=== PATIENT | male | born 1935 | race Caucasian/White ===

== ENCOUNTER → 2017-02-05 | Day surgery (SDC) | payer MEDICARE, BC ==
[~2017-02-05] VITALS: Ht 182.9 cm
[~2017-02-05] MED LIST: AMOXICILLIN500 MG PO; ASPIRIN EC81 MG PO; BACTRIM DS1 TAB PO; CALCIUM 600 +1 EAC6 PO; CALCIUM 600 +1 EAC7 PO; COLACE100 MG PO; COREG6.25 MG PO; COUMADIN ** IA5 MG PO; COUMADIN6 MG PO; FLOMAX0.4 MG PO; K-TAB 10MEQ10 MEQ PO; LASIX40 MG PO; LOPID600 MG PO; LOVENOX 8080 MG/0.8 SUB-Q; MIRALAX17 GM PO; NITROSTAT0.4 MG SL; NORCO 5-325 MG1 TAB PO; PERCOCET 5-3251 EACH PO; PLEXUS PROBIOTIC PO; SIMVASTATIN20 MG PO; THERA-VITE W/ B1 TAB PO
--- NOTE | ~2017-02-05 | OR ---
PATIENT'S NAME: [facility] AGE: 81 Y [address] ROOM: [place] [address] LOCATION: [facility] [place] ADMIT DATE: 02/05/2017 OR/Procedure Report DISCHARGE DATE: FAMILY PHYSICIAN: Harshad Starr MD ATTENDING PHYSICIAN: CHAD VALENZUELA SURGEON: Chad Valenzuela MD BOTTOM CAGER: Gibran Hunter PA-C. DATE OF PROCEDURE: 02/05/2017 PREOPERATIVE DIAGNOSIS: Symptomatic retained right ankle and hindfoot hardware. POSTOPERATIVE DIAGNOSIS: Symptomatic retained right ankle and hindfoot hardware. PROCEDURE: 1. Removal of deep buried hardware from right ankle and foot (tibiotalocalcaneal fusion nail/intramedullary device). 2. Use of intraoperative fluoroscopy, less than 1 hour. ANESTHESIA: General endotracheal anesthesia with peripheral nerve blocks. FLUIDS: See anesthesia report. ESTIMATED BLOOD LOSS: Minimal. TOURNIQUET: Right proximal thigh 250 mmHg. SPECIMEN: Removed deep buried hardware from right ankle and foot. COMPLICATIONS: None. DISPOSITION: Stable in PACU. COUNTS: All counts were correct. INDICATIONS: This is a pleasant 81-year-old gentleman who underwent the noted procedures above. The risks, benefits, and alternatives pursuing surgical intervention were discussed the patient in detail. I marked the patient's right lower extremity indicating the correct surgical site. Anesthesia was consulted for the perioperative evaluation of the patient. OPERATIVE REPORT IN DETAIL: The patient was brought from the holding area the operating room. A time-out was performed. General endotracheal anesthesia was administered. PATIENT'S NAME: [facility] AGE: 81 Y [address] ROOM: [place] [address] LOCATION: [facility] [place] ADMIT DATE: 02/05/2017 OR/Procedure Report DISCHARGE DATE: FAMILY PHYSICIAN: Harshad Starr MD ATTENDING PHYSICIAN: CHAD VALENZUELA The right lower extremity then prepped and draped in a sterile fashion. I introduced intraoperative fluoroscopy. I identified the two proximal and three distal interlocking screws in the intramedullary nail. I used a 15 blade knife to make a skin incision through skin and subcutaneous tissue, muscle fascia down to bone and hardware beginning distally. I removed the screws at the lateral aspect of the talus, lateral aspect of calcaneus and posterior aspect of the calcaneus. These were all interlocking screws. The portion of the interlocking screw directed posterior to anterior through the calcaneus was broken. The screw was removed in order to cannulate the nail. I used a K-wire to push the remaining end of that screw into the anterior soft tissue buried in the deep structures of foot. I then turned my attention to the proximal aspect of the nail and in the same fashion, removed 2 interlocking screws. I then turned my attention to the plantar surface of the foot. I reutilized the same plantar incision through the heel pad, through skin, and subcutaneous tissue down to bone. I removed the end cap from the nail. I cannulated the nail with the nail removal device. I subsequently removed the nail. All the wounds were copiously irrigated and closed in layers. Final fluoroscopic images revealed evidence of successful removal of a tibiotalocalcaneal fusion nail. There was some retained hardware in the plantar surface of the foot from the broken posterior to anterior interlocking calcaneus screw that was left in deep and buried in the soft tissues. Live fluoroscopic imaging revealed a stable tail of tibiotalar calcaneal fusion. Sterile dressings were placed in the form of Xeroform, followed by 4x4, Webril, and Henri bandage. The tourniquet was let down. The patient was then transferred to operating table onto the stretcher and extubated. He was brought to recovery room in stable condition. There were no intraoperative complications noted. Of note, my PA, Gibran Hunter PA-C, played an integral role in the intraoperative care of this patient. This included preoperative positioning, intraoperative expert retraction, and closing and dressing functions. PATIENT'S NAME: [facility] AGE: 81 Y [address] ROOM: [place], [place] [address] LOCATION: [facility] [place] ADMIT DATE: 02/05/2017 OR/Procedure Report DISCHARGE DATE: FAMILY PHYSICIAN: Harshad Starr MD ATTENDING PHYSICIAN: CHAD VALENZUELA IMPRESSION: The patient is status post the noted procedures above. PLAN: The patient will be nonweightbearing on the right lower extremity. Postoperative pain control in the form of Percocet and IV morphine as needed for pain. The patient has a nerve block placed by the Anesthesia team for postoperative analgesia. He will be discharged home from the PACU, provided he meets PACU discharge criteria. He will follow up in my office in 2 weeks for first postoperative visit. MD JOSE CARLOS CALDWELL/alexey /[id number] d: 02/05/17 1410 t: 02/06/17 1011, OPERATIVE SUMMARY
[2017-02-05 06:36] LABS: BASOPHIL # 0.1 K/uL (0.0-0.2); BASOPHIL % 1.3 %; EOSINOPHIL # 0.3 K/uL (0.0-0.5); HEMOGLOBIN 12.5 g/dL (11.0-16.0); IMMATURE GRANULOCYTE % 0.2 %; LYMPHOCYTE # 1.4 K/uL (0.8-4.0); LYMPHOCYTE % 29.4 %; MCH 28.1 pg (27.0-34.0); MCHC 32.9 gm/dL (32.0-36.5); MCV 85.4 fl (83.0-98.0); MONOCYTE # 0.5 K/uL (0.0-1.0); MONOCYTE % 10.2 %; MPV 9.7 fl (9.4-12.4); NEUTROPHIL # (ANC) 2.5 K/uL (1.4-9.0); NEUTROPHIL % 52.9 %; NRBC % 0 /100WBC (0-0.00); PLATELET COUNT 218 K/uL (150-450); RBC 4.45 M/uL (3.50-5.50); RDW-CV 14.3 % (11.9-14.6); WBC 4.8 K/uL (4.0-11.0)
[2017-02-05 06:49] LABS: INR - (THERAPEUTIC) 1.06 (0.92-1.07); PROTIME 11.1 SECONDS (9.8-11.4)
== END | disposition disaster alternative care site (69) ==
LOC: GPOC 01-30 11:00 → GSDC 05:45 → GPOC 06:00
PROVIDERS: Orthopaedic Surgery Adult Reconstructive Orthopaedic Surgery
PROC: 0SPF04Z Removal of Internal Fixation Device from Right Ankle Joint, Open Approach (ICD-10-PCS; principal; 2017-02-05)
DX: T84.84XA Pain due to internal orthopedic prosthetic devices, implants and grafts, initial encounter (principal); I25.10 Atherosclerotic heart disease of native coronary artery without angina pectoris; M19.90 Unspecified osteoarthritis, unspecified site; E78.00 Pure hypercholesterolemia, unspecified; I10 Essential (primary) hypertension; I48.91 Unspecified atrial fibrillation; Z95.5 Presence of coronary angioplasty implant and graft; Z98.890 Other specified postprocedural states
CPT/HCPCS: J0690; J1040; J2001; J7120